=== PATIENT | female | born 1970 | race Caucasian/White ===

== ENCOUNTER 2021-12-29 11:18 | Emergency (ER) | payer OTHER ==
[2021-12-29] MEDS ORDERED: Ondansetron 4 MG/2 ML SDV IVPUSH ONE (11:21)
[2021-12-29] MEDS ORDERED: Morphine 10 MG/ML Syringe IVPUSH ONE (11:22)
[2021-12-29] MEDS ORDERED: Sodium Chloride 0.9% 1,000 ML IV SCH (11:30)
[2021-12-29] MEDS: Sodium Chloride 0.9% 10 ML Syringe FLUSH PRN ×4 (11:41→16:35)
[2021-12-29 12:16] LABS: ANION GAP 13.7 meq/L (7-15); CHLORIDE,CL 102 mmol/L (98-107); SODIUM,NA 138 mmol/L (136-145)
[2021-12-29] MEDS ORDERED: Lactulose Soln 10 GM/15 ML 30 ML UD Cup PO ONE (12:56)
[2021-12-29] MEDS ORDERED: Ketorolac 15 MG/ML SDV IVPUSH ONE (12:57)
[2021-12-29] MEDS ORDERED: Magnesium Citrate Solution 296 ML Bottle PO ONE (12:57)
[2021-12-29] MEDS ORDERED: Sodium Chloride 0.9% 1,000 ML IV ONE (13:27)
[2021-12-29] MEDS ORDERED: Ondansetron 4 MG/2 ML SDV IVPUSH PRN (16:04)
[2021-12-29] MEDS ORDERED: GI Cocktail Oral Solution 30 ML PO ONE (16:05)
[2021-12-29] MEDS ORDERED: Morphine 2 MG/ML SYRINGE IVPUSH PRN (16:05)
== END 2021-12-29 20:35 | disposition home or self-care (01) ==
LOC: LL.ED 11:18
DX: R10.32 Left lower quadrant pain (principal); E78.00 Pure hypercholesterolemia, unspecified; I10 Essential (primary) hypertension; Z88.2 Allergy status to sulfonamides; Z79.899 Other long term (current) drug therapy
CPT/HCPCS: 36415; 74019; 74150; 80053; 81003; 82150; 83605; 83690; 84703; 85025; 96374; 96375; 96376; 99284; 99284-25; A9270-GY; J1885; J2270; J2405; J3490; J7030